=== PATIENT | male | born 1960 | race Caucasian/White ===

== ENCOUNTER 2019-02-24 08:47 | Outpatient (CLI) | payer OTHER ==
--- NOTE | 2019-02-24 09:12 | RAD ---
XR Shoulder Rt 3 View STANDARD: 02/24/2019 9:00 AM CLINICAL INDICATION: History of fall with right shoulder pain. COMPARISON: None. FINDINGS: Bones: There is healed fracture deformity of the proximal right humerus which is instrumented. The in strumentation projects in expected position. There is a prominent amount of bone loss seen within the greater tuberosity which is likely posttraumatic or postsurgical in nature. Glenohumeral alignmen t is normal appearing. Glenohumeral joint: Normal alignment. AC joint: Normal alignment. Visualized lung: Clear. Soft tissues: Within normal limits. IMPRESSION: No acute osseous abnormality.
== END 2019-02-24 08:48 | disposition home or self-care (01) ==
LOC: MADRAD 08:47
PROVIDERS: ATTEND Family Medicine
DX: M25.511 Pain in right shoulder (principal)